=== PATIENT | female | born 1990 | race American Indian/Alaskan Native ===

== ENCOUNTER 2018-06-05 20:53 | Emergency (ER) | payer OTHER ==
[2018-06-05 21:28] VITALS: BP 121/60
--- NOTE | 2018-06-05 21:28 | Emergency Department Report ---
- General Chief complaint: Skin Rash Stated complaint: POSS BED BUG BITES Time Seen by Provider: 06/05/18 21:23 Source: patient Mode of arrival: Ambulatory Limitations: No Limitations - History of Present Illness Initial comments: pt is a 28 yo female who states that she stayed at the [facility] last night. Pt states that she was bit by bed bugs. pt states she saw the bugs on the mattress. Pt has them diffusely. She states she has had itching. no fever or v/d. no PMHx, no allergies to medications. - Related Data Previous Rx's Medication Instructions Recorded Last Taken Type Permethrin [Home Mkwb-Xoxoxw-Ohmg 142 gm MC ONCE #1 spray 06/05/18 Unknown Rx Mite] Allergies Allergy/AdvReac Type Severity Reaction Status Date / Time No Known Allergies Allergy Unverified 10/15/14 10:51 Abscess Boil HPI - HPI Chief Complaint: Skin Rash Stated Complaint: POSS BED BUG BITES Time Seen by Provider: 06/05/18 21:23 Home Medications: Previous Rx's Medication Instructions Recorded Last Taken Type Permethrin [Home Sgwu-Rkslot-Tghf 142 gm MC ONCE #1 spray 06/05/18 Unknown Rx Mite] Allergies/Adverse Reactions: Allergies Allergy/AdvReac Type Severity Reaction Status Date / Time No Known Allergies Allergy Unverified 10/15/14 10:51 ED Review of Systems ROS: Stated complaint: POSS BED BUG BITES Other details as noted in HPI Comment: All other systems reviewed and negative ED Past Medical Hx - Medications Home Medications: Home Medications Medication Instructions Recorded Confirmed Last Taken Type Permethrin [Home Vbxu-Jifpwn-Mwri 142 gm MC ONCE #1 spray 06/05/18 Unknown Rx Mite] ED Physical Exam - General Limitations: No Limitations General appearance: alert, in no apparent distress - Head Head exam: Present: atraumatic, normocephalic - Eye Eye exam: Present: normal appearance, PERRL - ENT ENT exam: Present: mucous membranes moist - Neurological Exam Neurological exam: Present: alert, oriented X3 - Psychiatric Psychiatric exam: Present: normal affect, normal mood - Skin Skin exam: Present: warm, dry, other (medium sized erythematous papules diffusely, no drainage, no increased warmth, appears pt has been scratching) ED Course Vital Signs 06/05/18 21:24 Temperature 98.7 F Pulse Rate 91 H Respiratory 16 Rate Blood Pressure 121/60 O2 Sat by Pulse 100 Oximetry ED Medical Decision Making - Medical Decision Making pt is a 28 yo female who states that she stayed at the [facility] last night. Pt states that she was bit by bed bugs. pt states she saw the bugs on the mattress. Pt has them diffusely. She states she has had itching. no fever or v/d. no PMHx, no allergies to medications. Examination consistent with bed bug bites. Pt given permethrin advised to use as prescribed and repeat in 10 days. Pt given refill. Discussed to wash clothes in hot water and bleach/ throw away/ or seal in trash bag for 10 days then wash with hot water. Advised to use benadryl OTC for itching. Follow up with PCP in the next 2-3 days. Return to the ED for any new or worsening symptoms. Critical care attestation.: If time is entered above; I have spent that time in minutes in the direct care of this critically ill patient, excluding procedure time. ED Disposition Clinical Impression: Bed bug bite Qualifiers: Encounter type: initial encounter Qualified Code(s): W57.XXXA - Bitten or stung by nonvenomous insect and other nonvenomous arthropods, initial encounter Disposition: DC-01 TO HOME OR SELFCARE Is pt being admited?: No Does the pt Need Aspirin: No Condition: Stable Instructions: Insect Bite or Sting (ED) Additional Instructions: Please use medication as prescribed. Will need to repeat in 10-14 days. May use benadryl over the counter for itching. Please follow up with a primary care doctor in the next 2-3 days. Will need to wash clothing in hot water/bleach, or place in a sealed trashbag for 10 days, or throw away. Would not sleep at location again. Return to the ED for any new or worsening symptoms. Prescriptions: Permethrin [Home Sgod-Vozojx-Habv Mite] 142 gm MC ONCE #1 spray Referrals: JUNA R TRISTAN MD [Primary Care Provider] - 2-3 Days Time of Disposition: 21:45 Print Language: TAMAZIGHT
== END 2018-06-05 21:57 | disposition home or self-care (01) ==
LOC: ED 20:53
DX: L29.9 Pruritus, unspecified (principal); W57.XXXA Bitten or stung by nonvenomous insect and other nonvenomous arthropods, initial encounter; Y93.89 Activity, other specified; Y92.092 Bedroom in other non-institutional residence as the place of occurrence of the external cause; Y99.8 Other external cause status
CPT/HCPCS: 99282